=== PATIENT | female | born 1945 | race Caucasian/White ===

== ENCOUNTER → 2019-04-24 | Outpatient (CLI) | payer OTHER | LOC: SJCVC 10:39 | DX: I45.2 Bifascicular block (principal); R94.31 Abnormal electrocardiogram [ECG] [EKG]; I25.10 Atherosclerotic heart disease of native coronary artery without angina pectoris; E78.5 Hyperlipidemia, unspecified; J45.909 Unspecified asthma, uncomplicated; E11.22 Type 2 diabetes mellitus with diabetic chronic kidney disease; I12.9 Hypertensive chronic kidney disease with stage 1 through stage 4 chronic kidney disease, or unspecified chronic kidney disease; N18.3 Chronic kidney disease, stage 3 (moderate); Z90.49 Acquired absence of other specified parts of digestive tract; Z79.899 Other long term (current) drug therapy ==

== ENCOUNTER → 2019-05-31 | Outpatient (CLI) | payer OTHER ==
[~2019-05-31] MED LIST: AMARYL2 MG PO; HYDROCHLOROTHIA25 M2 PO; IMDUR 30 MG TAB30 M1 PO; LIPITOR 20 MG T20 M1 PO; LISINOPRIL20 MG PO; METFORMIN HCL500 MG PO; MIRALAX17 GM PO; NORCO 5-325 TA1 EACH PO; OLANZAPINE5 MG PO; OXYBUTYNIN 5 MG5 M2 PO; PIOGLITAZONE15 MG PO; PLAVIX 75 MG TA75 M1 PO; TOPROL XL100 MG PO
== END ==
LOC: SJCVCIMAG 05-30 16:27
DX: R55 Syncope and collapse (principal); I25.10 Atherosclerotic heart disease of native coronary artery without angina pectoris; I10 Essential (primary) hypertension; E78.5 Hyperlipidemia, unspecified; E11.9 Type 2 diabetes mellitus without complications; Z79.899 Other long term (current) drug therapy

== ENCOUNTER → 2019-11-05 | Outpatient (CLI) | payer OTHER ==
[~2019-11-05] MED LIST changes: +ASA81BEC PO; +CALCIUM-MAG-ZI1 EACH PO; +CLONAZEPAM 0.50.5 M1 PO; +CRANBERRY200 MG PO; +FISH OIL 1,0001 EAC9 PO; +MELOXICAM15 MG PO; +RANEXA1000 MG PO; +ROSUVASTATIN CA20 MG PO; +VITAMIN B12-FO1 EAC1 PO
[2019-11-05 12:19] VITALS: BP 148/79
--- NOTE | 2019-11-07 09:27 | LINQ ---
[facility] [place] [address] LINQ PROCEDURE REPORT Name: GISEL PICHARDO Room #: REG EVELIO Aleman#: [id number] Admission: 11/05/19 Attend Phys: Isak Lynch Discharge: Date of : 49 Report #: [id number] THIS REPORT FOR: cc: Stephanie Hurt MD, Ghazal A. MD Lammoglia, Francisco J. MD ~ THIS REPORT FOR: //name// APPROVED REPORT Study performed: 11/05/2019 14:00:02 Patient Status: Out-Patient Room #: Event Personnel: Isak Lynch MD Exam: Reveal LINQ Insertion The patient is a 74 year-old female with a history of syncope. Implanted Devices: [employer]: Reveal LINQ; Model #: LNQ11; SN: [id number]; Use by: 2020-02-04 Procedure The patient underwent informed consent. We discussed the details of the procedure including the risks, which include, but not limited to bleeding, infection, vascular damage, cardiac perforation, and pneumothorax. After informed consent the patient was brought to cardiac quality assurance lab technician prep and hold. The left chest was prepped and draped in sterile condition. Lidocaine was instilled andusing an 11 blade a small incision was made, using both sharp and blunt dissection a pocket tract was developed. Utilizing the deployment tool the device was deployed without issues. subcutaneous tissue closed with single interupted suture. Skin closed with 3-0 absorbable running subcuticular stitch. Complications The patient tolerated the procedure well and there were no complications associated with the procedure. Conclusion 1. successful ILR implant [place] [address] [place] [address] IP [employer] PROCEDURE REPORT Name: GISEL PICHARDO Room #: REG CL [facility]#: [id number] Admission: 11/05/19 Attend Phys: Isak Alvarado Discharge: Date of : 49 Report #: [id number] Recommendations 1. routine post insertion protocol <ELECTRONICALLY SIGNED> By: Isak Lynch MD 11/07/19926 6 6 Isak Lynch MD /INF
== END | disposition home or self-care (01) ==
LOC: CATH 09:49
PROVIDERS: ATTEND Internal Medicine
DX: R55 Syncope and collapse (principal); Z98.890 Other specified postprocedural states; Z79.899 Other long term (current) drug therapy; Z88.8 Allergy status to other drugs, medicaments and biological substances

== ENCOUNTER → 2021-03-09 | Outpatient (CLI) | payer OTHER | LOC: SJCVC 10:34 | PROVIDERS: ATTEND Internal Medicine | DX: R94.31 Abnormal electrocardiogram [ECG] [EKG] (principal); I13.10 Hypertensive heart and chronic kidney disease without heart failure, with stage 1 through stage 4 chronic kidney disease, or unspecified chronic kidney disease; N18.30 Chronic kidney disease, stage 3 unspecified; E78.5 Hyperlipidemia, unspecified; R55 Syncope and collapse; I25.10 Atherosclerotic heart disease of native coronary artery without angina pectoris; J45.909 Unspecified asthma, uncomplicated; Z88.8 Allergy status to other drugs, medicaments and biological substances; Z79.82 Long term (current) use of aspirin; Z79.899 Other long term (current) drug therapy ==